=== PATIENT | female | born 1945 | race Hispanic/Latino ===

== ENCOUNTER 2023-01-07 15:53 | Inpatient (IN) | payer MEDICARE, BC, OTHER ==
[~2023-01-07] VITALS: Ht 162.6 cm; Wt 74.2 kg
[~2023-01-07 15:53] MED LIST: NKM; PROTONIX40 M1 PO
[2023-01-07] MEDS ORDERED: SODIUM CHLORIDE 0.9% 1000ML 1,000 ML IV STA (16:18)
[2023-01-07 16:58] LABS: CLARITY,URINE SL CLOUDY (CLEAR); COLOR,URINE AMBER (YELLOW); KETONES,URINE TRACE (NEGATIVE); LEUKOCYTE ESTERASE ,URINE NEGATIVE (NEGATIVE); NITRITE,URINE POSITIVE (NEGATIVE); PROTEIN,URINE DIPSTICK TRACE (NEGATIVE); URINE UROBILINOGEN 2 mg/dL (0.2 - 1)
[2023-01-07 17:10] LABS: BASOPHILS # (AUTO) 0.1 (0.0-0.1); BASOPHILS % 1.2 % (0.0-1.0); EOSINOPHILS # (AUTO) 0.2 (0.0-0.4); HEMATOCRIT 31.4 % (34.2-44.1); HEMOGLOBIN 10.4 g/dL (12.0-16.0); LYMPHOCYTES # (AUTO) 1.6 (1.0-3.2); MEAN CORPUSCULAR HEMOGLOBIN 34.6 pg (28-32); MEAN CORPUSCULAR HGB CONC 33.1 g/dL (31-35); MEAN CORPUSCULAR VOLUME 104.3 fL (81-99); MONOCYTES # (AUTO) 0.5 (0.2-0.8); MONOCYTES % 11.1 % (4.4-11.3); NEUTROPHILS % 46.5 % (38.7-80.0); RED BLOOD COUNT 3.01 x10e6/uL (3.6-5.1); RED CELL DISTRIBUTION WIDTH 15.3 % (11.7-14.4)
[2023-01-07 17:11] LABS: BACTERIA,URINE FEW /HPF; EPITHELIAL CELLS,URINE MODERATE /LPF; MUCUS,URINE MODERATE (RARE); RBC,URINE 0-5 /HPF (0-5)
[2023-01-07 17:12] LABS: PLATELET COUNT 78 x10e3/uL (140-360)
[2023-01-07 17:13] LABS: INR 1.75; PROTHROMBIN TIME 20.9 seconds (11.9-14.5)
[2023-01-07 17:14] LABS: PARTIAL THROMBOPLASTIN TIME 39.7 seconds (23.8-35.5)
[2023-01-07 17:24] LABS: ALBUMIN 2.4 g/dL (3.5-5.0); ALBUMIN/GLOBULIN RATIO 0.6 (0.8-2.0); ANION GAP 8.7 mmol/L (8-16); CALCIUM 8.3 mg/dL (8.4-10.2); CREATININE, SERUM 0.76 mg/dL (0.57-1.11); POTASSIUM 3.7 mmol/L (3.5-5.1)
[2023-01-07] MEDS ORDERED: IOPAMIDOL 370 MG/ML 100 ML INFUS..BTL INJ ONE (17:36)
[2023-01-07] MEDS ORDERED: FUROSEMIDE INJ 10 MG/ML 2 ML VIAL IV ONE (18:00)
[2023-01-07] MEDS ORDERED: ONDANSETRON HCL INJ 2MG/ML 2ML 2 MG/ML VIAL IV PRN (18:00)
[2023-01-07] MEDS: FAMOTIDINE 20 MG/2 ML VIAL IV SCH (18:28)
[2023-01-07 19:10] VITALS: PULSE 62; RESP 18; O2SAT 98
[2023-01-07] MEDS ORDERED: ACETAMINOPHEN 325 MG TAB PO PRN (19:30)
[2023-01-07] MEDS ORDERED: ALBUTEROL/IPRATROPIUM 3 ML NEB NEB PRN (19:30)
[2023-01-07 20:48] VITALS: BP 131/52; PULSE 109; RESP 20; TEMP 98.5; O2SAT 100
[2023-01-07] MEDS: FUROSEMIDE INJ 10 MG/ML 4 ML VIAL IV SCH (21:47)
[2023-01-07] MEDS ORDERED: DORZOLAMIDE-TI1 EACH OU (22:14)
[2023-01-07] MEDS ORDERED: LUMIGAN2.5 M1 OU (22:14)
[2023-01-07] MEDS ORDERED: BRIMONIDINE TART5 ML OU (22:14)
[2023-01-07 22:18] VITALS: BP 131/52; PULSE 109; RESP 20; TEMP 98.5; O2SAT 100
[2023-01-07 22:20] VITALS: BP 131/52; PULSE 109; RESP 20; TEMP 98.5; O2SAT 100
[2023-01-08] VITALS (9 sets, daily range): BP systolic 98–143; BP diastolic 34–94; PULSE 49–81; RESP 15–20; TEMP 97.7–98.6; O2SAT 93–100
[2023-01-08 06:15] LABS: EOSINOPHILS # (AUTO) 0.1 (0.0-0.4); EOSINOPHILS % 3.1 % (0.0-6.0); HEMATOCRIT 26.1 % (34.2-44.1); HEMOGLOBIN 8.6 g/dL (12.0-16.0); LYMPHOCYTES # (AUTO) 1.2 (1.0-3.2); LYMPHOCYTES % 43.2 % (18.0-39.1); MEAN CORPUSCULAR HEMOGLOBIN 34.7 pg (28-32); MEAN CORPUSCULAR VOLUME 105.2 fL (81-99); MONOCYTES # (AUTO) 0.3 (0.2-0.8); MONOCYTES % 11.8 % (4.4-11.3); NEUTROPHILS # (AUTO) 1.2 (2.1-6.9); NEUTROPHILS % 40.6 % (38.7-80.0); PLATELET COUNT 55 x10e3/uL (140-360); RED BLOOD COUNT 2.48 x10e6/uL (3.6-5.1); RED CELL DISTRIBUTION WIDTH 14.9 % (11.7-14.4)
[2023-01-08] MEDS: FAMOTIDINE 20 MG/2 ML VIAL IV SCH ×2 (06:45→18:42)
[2023-01-08 07:00] LABS: ALBUMIN 1.9 g/dL (3.5-5.0); ALBUMIN/GLOBULIN RATIO 0.5 (0.8-2.0); ANION GAP 7.6 mmol/L (8-16); CALCIUM 7.9 mg/dL (8.4-10.2); CHOL/HDL RATIO 5.3 (3.0-3.6); CREATININE, SERUM 0.79 mg/dL (0.57-1.11); POTASSIUM 3.6 mmol/L (3.5-5.1)
[2023-01-08 07:09] LABS: MAGNESIUM 1.5 MG/DL (1.3-2.1)
[2023-01-08 07:19] LABS: FERRITIN 205.56 ng/mL (4.63-204.00); THYROID STIMULATING HORMONE 3.095 uIU/mL (0.350-4.940)
[2023-01-08] MEDS: DOCUSATE SODIUM 100 MG CAP PO SCH (10:45)
[2023-01-08] MEDS: FUROSEMIDE INJ 10 MG/ML 4 ML VIAL IV SCH ×2 (10:46→21:48)
[2023-01-08] MEDS: SENNOSIDES 8.6 MG TAB PO SCH (10:46)
[2023-01-09] VITALS (11 sets, daily range): BP systolic 100–144; BP diastolic 34–72; PULSE 49–94; RESP 16–21; TEMP 97.8–98.9; O2SAT 95–100
[2023-01-09] MEDS: FAMOTIDINE 20 MG/2 ML VIAL IV SCH ×2 (04:46→17:55)
[2023-01-09 06:56] LABS: BASOPHILS % 0.5 % (0.0-1.0); EOSINOPHILS # (AUTO) 0.2 (0.0-0.4); EOSINOPHILS % 4.1 % (0.0-6.0); HEMATOCRIT 27.7 % (34.2-44.1); HEMOGLOBIN 9.3 g/dL (12.0-16.0); LYMPHOCYTES # (AUTO) 1.6 (1.0-3.2); LYMPHOCYTES % 42.2 % (18.0-39.1); MEAN CORPUSCULAR HEMOGLOBIN 34.3 pg (28-32); MEAN CORPUSCULAR HGB CONC 33.6 g/dL (31-35); MEAN CORPUSCULAR VOLUME 102.2 fL (81-99); MONOCYTES # (AUTO) 0.4 (0.2-0.8); MONOCYTES % 11.4 % (4.4-11.3); NEUTROPHILS # (AUTO) 1.5 (2.1-6.9); NEUTROPHILS % 41.8 % (38.7-80.0); PLATELET COUNT 57 x10e3/uL (140-360); RED BLOOD COUNT 2.71 x10e6/uL (3.6-5.1); RED CELL DISTRIBUTION WIDTH 14.4 % (11.7-14.4)
[2023-01-09 07:22] LABS: ALBUMIN 1.9 g/dL (3.5-5.0); ALBUMIN/GLOBULIN RATIO 0.5 (0.8-2.0); ANION GAP 9.5 mmol/L (8-16); CREATININE, SERUM 0.82 mg/dL (0.57-1.11); MAGNESIUM 1.5 MG/DL (1.3-2.1); POTASSIUM 3.5 mmol/L (3.5-5.1)
[2023-01-09] MEDS: SENNOSIDES 8.6 MG TAB PO SCH (09:00)
[2023-01-09] MEDS: DOCUSATE SODIUM 100 MG CAP PO SCH (10:56)
[2023-01-09] MEDS: FUROSEMIDE INJ 10 MG/ML 4 ML VIAL IV SCH ×3 (10:56→11:05)
[2023-01-09] MEDS: MIDODRINE HCL 5 MG TABLET PO SCH ×2 (12:53→16:39)
[2023-01-09] MEDS: MAGNESIUM SULFATE 2GM/50ML 50 ML IV SCH ×2 (12:53→15:20)
[2023-01-09] MEDS: SPIRONOLACTONE 25 MG TAB PO SCH (12:54)
[2023-01-09] MEDS: CEFTRIAXONE 2 GM in SODIUM CHLORIDE 0.9% 100 ML IV SCH (17:56)
[2023-01-10] VITALS (10 sets, daily range): BP systolic 102–154; BP diastolic 42–61; PULSE 45–82; RESP 15–20; TEMP 97.5–98.3; O2SAT 93–100
[2023-01-10] MEDS: FAMOTIDINE 20 MG/2 ML VIAL IV SCH ×2 (05:59→06:00)
[2023-01-10] MEDS ORDERED: MAG-OXIDE400 MG PO (08:16)
[2023-01-10] MEDS ORDERED: PANTOPRAZOLE SO40 MG PO (08:16)
[2023-01-10] MEDS ORDERED: ALDACTONE25 MG PO (08:16)
[2023-01-10] MEDS ORDERED: MIDODRINE HCL5 MG PO (08:16)
[2023-01-10] MEDS ORDERED: FUROSEMIDE40 MG PO (08:16)
[2023-01-10 08:49] LABS: EOSINOPHILS # (AUTO) 0.2 (0.0-0.4); EOSINOPHILS % 4.1 % (0.0-6.0); HEMATOCRIT 27.7 % (34.2-44.1); HEMOGLOBIN 9.1 g/dL (12.0-16.0); LYMPHOCYTES # (AUTO) 1.6 (1.0-3.2); LYMPHOCYTES % 40.5 % (18.0-39.1); MEAN CORPUSCULAR HEMOGLOBIN 34.5 pg (28-32); MEAN CORPUSCULAR HGB CONC 32.9 g/dL (31-35); MEAN CORPUSCULAR VOLUME 104.9 fL (81-99); MONOCYTES # (AUTO) 0.5 (0.2-0.8); MONOCYTES % 11.8 % (4.4-11.3); NEUTROPHILS # (AUTO) 1.7 (2.1-6.9); NEUTROPHILS % 42.3 % (38.7-80.0); PLATELET COUNT 57 x10e3/uL (140-360); RED BLOOD COUNT 2.64 x10e6/uL (3.6-5.1); RED CELL DISTRIBUTION WIDTH 15.2 % (11.7-14.4)
[2023-01-10 09:07] LABS: ALBUMIN 1.8 g/dL (3.5-5.0); ALBUMIN/GLOBULIN RATIO 0.5 (0.8-2.0); ANION GAP 9.5 mmol/L (8-16); CREATININE, SERUM 0.91 mg/dL (0.57-1.11); MAGNESIUM 1.9 MG/DL (1.3-2.1); POTASSIUM 3.5 mmol/L (3.5-5.1)
[2023-01-10] MEDS: FAMOTIDINE 20 MG TAB PO SCH ×2 (09:20→21:20)
[2023-01-10] MEDS: DOCUSATE SODIUM 100 MG CAP PO SCH (09:21)
[2023-01-10] MEDS: MAGNESIUM OXIDE 400 MG TAB PO SCH (09:21)
[2023-01-10] MEDS: MIDODRINE HCL 5 MG TABLET PO SCH ×3 (09:21→17:44)
[2023-01-10] MEDS: SPIRONOLACTONE 25 MG TAB PO SCH (09:21)
[2023-01-10] MEDS: SENNOSIDES 8.6 MG TAB PO SCH (09:21)
[2023-01-10] MEDS: FUROSEMIDE 40 MG TAB PO SCH (09:21)
[2023-01-10] MEDS: CEFTRIAXONE 2 GM in SODIUM CHLORIDE 0.9% 100 ML IV SCH (09:22)
[2023-01-10] MEDS ORDERED: ONDANSETRON HCL 4 MG ORAL DISINTEGRATING TAB PO PRN (09:45)
[2023-01-10] MEDS ORDERED: LACTULOSE SYRUP 20 GM/30 ML UDC PO PRN (14:00)
[2023-01-10] MEDS ORDERED: LACTULOSE SYRUP 20 GM/30 ML UDC PO SCH (15:00)
[2023-01-10] MEDS: LACTULOSE SYRUP 20 GM/30 ML UDC PO SCH ×2 (15:04→21:20)
[2023-01-10] MEDS: RIFAXIMIN 550 MG TABLET PO SCH (17:44)
[2023-01-11] VITALS (7 sets, daily range): BP systolic 93–141; BP diastolic 40–50; PULSE 48–60; RESP 16–18; TEMP 98.1–98.4; O2SAT 96–99
[2023-01-11 06:23] LABS: EOSINOPHILS # (AUTO) 0.2 (0.0-0.4); EOSINOPHILS % 4.3 % (0.0-6.0); HEMATOCRIT 27.1 % (34.2-44.1); HEMOGLOBIN 9.1 g/dL (12.0-16.0); LYMPHOCYTES # (AUTO) 1.8 (1.0-3.2); LYMPHOCYTES % 42.3 % (18.0-39.1); MEAN CORPUSCULAR HEMOGLOBIN 34.3 pg (28-32); MEAN CORPUSCULAR HGB CONC 33.6 g/dL (31-35); MEAN CORPUSCULAR VOLUME 102.3 fL (81-99); MONOCYTES # (AUTO) 0.5 (0.2-0.8); MONOCYTES % 12.3 % (4.4-11.3); NEUTROPHILS # (AUTO) 1.7 (2.1-6.9); NEUTROPHILS % 39.9 % (38.7-80.0); PLATELET COUNT 68 x10e3/uL (140-360); RED BLOOD COUNT 2.65 x10e6/uL (3.6-5.1); RED CELL DISTRIBUTION WIDTH 14.6 % (11.7-14.4)
[2023-01-11 07:25] LABS: ALBUMIN 1.8 g/dL (3.5-5.0); ALBUMIN/GLOBULIN RATIO 0.5 (0.8-2.0); ANION GAP 7.5 mmol/L (8-16); CALCIUM 7.9 mg/dL (8.4-10.2); CREATININE, SERUM 0.86 mg/dL (0.57-1.11); MAGNESIUM 1.7 MG/DL (1.3-2.1); POTASSIUM 3.5 mmol/L (3.5-5.1)
[2023-01-11] MEDS: PANTOPRAZOLE SOD 40 MG TABEC PO SCH ×2 (08:20→08:36)
[2023-01-11] MEDS: SPIRONOLACTONE 25 MG TAB PO SCH (08:36)
[2023-01-11] MEDS: LACTULOSE SYRUP 20 GM/30 ML UDC PO SCH ×2 (08:36→16:48)
[2023-01-11] MEDS: SENNOSIDES 8.6 MG TAB PO SCH (08:36)
[2023-01-11] MEDS: MAGNESIUM OXIDE 400 MG TAB PO SCH (08:36)
[2023-01-11] MEDS: MIDODRINE HCL 5 MG TABLET PO SCH ×3 (08:36→16:46)
[2023-01-11] MEDS: RIFAXIMIN 550 MG TABLET PO SCH ×2 (08:37→16:48)
[2023-01-11] MEDS: FAMOTIDINE 20 MG TAB PO SCH (08:37)
[2023-01-11] MEDS: FUROSEMIDE 40 MG TAB PO SCH (08:37)
[2023-01-11] MEDS: DOCUSATE SODIUM 100 MG CAP PO SCH (08:37)
[2023-01-11] MEDS: CEFTRIAXONE 2 GM in SODIUM CHLORIDE 0.9% 100 ML IV SCH (08:37)
[2023-01-11] MEDS ORDERED: ONDANSETRON ODT4 MG PO (15:54)
[2023-01-11] MEDS ORDERED: LACTULOSE20 GM/30 M PO (15:54)
[2023-01-11] MEDS ORDERED: XIFAXAN550 MG PO (16:02)
== END 2023-01-11 17:17 | disposition home or self-care (01) | DRG 177 ==
LOC: ER 15:56 → ERHOLD 17:59 → MED/SURG2 19:31
PROVIDERS: ADMIT Internal Medicine; ATTEND Internal Medicine
DX: U07.1 COVID-19 (principal); J15.9 Unspecified bacterial pneumonia; D61.818 Other pancytopenia; I50.32 Chronic diastolic (congestive) heart failure; M06.9 Rheumatoid arthritis, unspecified; K21.9 Gastro-esophageal reflux disease without esophagitis; K74.60 Unspecified cirrhosis of liver; R91.1 Solitary pulmonary nodule; R73.9 Hyperglycemia, unspecified; I95.9 Hypotension, unspecified; K76.82 Hepatic encephalopathy; E87.70 Fluid overload, unspecified; Z79.52 Long term (current) use of systemic steroids
CPT/HCPCS: 36415; 71045; 71260; 76700; 80053; 80061; 81001; 82140; 82550; 82607; 82728; 83036; 83540; 83735; 83880; 84443; 84466; 84484; 85025; 85045; 85379; 85610; 85730; 93005; 93306; 94640; 94799; 99252; 99284; J0696; J1940; J3475; J7030; J7050; Q9967